=== PATIENT | female | born 1980 | race Caucasian/White ===

== ENCOUNTER 2018-12-03 15:46 | Emergency (ER) | payer OTHER ==
[2018-12-03 15:55] VITALS: TEMP 99.6; BMI 32.5
[2018-12-03] MEDS ORDERED: ONDANSETRON 4 MG/2 ML VIAL IVPB ONE (16:14)
[2018-12-03] MEDS ORDERED: SODIUM CHLORIDE 1,000 ML IV ONE (16:14)
--- NOTE | 2018-12-03 16:14 | PDOC ---
Attending Attestation - Resident Resident Name: Simon Forbes - ED Attending Attestation I have performed the following: I have examined & evaluated the patient, The case was reviewed & discussed with the resident, I agree w/resident's findings & plan, Exceptions are as noted - HPI HPI: 12/03/18 16:12 38y F hx of ovarian cysts s/p cystectomy presents with epigastric pain associated with n/v/d since last night. 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 However, overnight, she had multiple episodes of nbnb vomiting and brown watery diarrhea (~7 episodes of each) without bpr or melena. Pt endorses feeling some chills. Pt has not eaten anythng since last night but was able to tolerate some water an hr ago. Pt denies any recent travel or [place] sick contacts. pt denies any dysuria, vag bleed, cp, sob, palpitations lightedness. - Physicial Exam PE: 12/03/18 17:07 GENERAL: The patient is awake, alert, and fully oriented, Nontoxic - in no acute distress. HEAD: Normocephalic, atraumatic. EYES: extraocular movements intact, sclera anicteric, conjunctiva clear. ENT: Normal voice, dry mucous membranes. NECK: Normal range of motion, supple LUNGS: Breath sounds equal, clear to auscultation bilaterally. No wheezes, no rhonchi, no rales. HEART: tachycardic, no m/r/g ABDOMEN: Soft, nontender, No guarding, no rebound. . No CVA tenderness EXTREMITIES: Normal range of motion, no edema. No clubbing or cyanosis. No cords, erythema, or tenderness. NEUROLOGICAL: No facial assymetry, Normal speech, PSYCH: Normal mood, normal affect. SKIN: hot to touch, Dry, normal turgor, - Critical Care Time Total Critical Care Time: 30 Critical Care Statement: The care of this patient involved high complexity decision making to prevent further life threatening deterioration of the patient 's condition and/or to evaluate & treat vital organ system(s) failure or risk of failure. - Medical Decision Making 12/03/18 17:08 -year-old female presenting with nausea vomiting and diarrhea with intermittent epigastric pain, current leave the patient is pain-free and does not feel nauseous. The patient's presenting vital signs revealed heart rate of 140 this may be attributable to a low-grade temperature as well as dehydration as the patient has not really had anything to eat or drink since last night. Her abdominal exam is benign without any tenderness. We will fluid resuscitate the patient, will give Tylenol for suspected fever, lab work to rule out anemia, metabolic derangements, leukocytosis. UA to eval for UTI EKG to screen for arrhythmia We'll reassess 12/03/18 17:27 pts HR improving w fluid resusitation - currently 116 Heart Score/ECG Review - ECG Impressions Comment:: 12/03/18 17:08 Twelve-lead EKG was performed and reviewed by me. There is normal sinus rhythm with a rate of 121 The axis is normal. The intervals are normal. There is normal R wave progression There are no ST or T wave abnormalities. Impression: Sinus tachycardia
[2018-12-03] MEDS ORDERED: ONDANSETRON 4 MG/2 ML VIAL ONE (16:20)
[2018-12-03 16:25] LABS: HCG,QUALITATIVE URINE Negative
--- NOTE | 2018-12-03 16:29 | PDOC ---
History of Present Illness - General Chief Complaint: Vomiting/Diarrhea Stated Complaint: N/V/D, OVARIAN CYST Time Seen by Provider: 12/03/18 15:57 History Source: Patient Exam Limitations: No Limitations - History of Present Illness Initial Comments: 12/03/18 16:16 38 yo female pmh of ovarian cysts (large cyst removed over 15 years ago) presents to the ED with 1 day of NB/NB vomiting, diarrhea and abdominal pain. Pt states she went to [facility] yesterday for vaginal bleeding that started 3 days ago requiring 3-5 tampons per day/. Pt had transvag US, told she had a 4 cm left ovarian cyst yesterday and sent home, does not know results of blood work. Pt states she was woken up out of sleep today with intermittent LLQ and epigastric abdominal pain described as burning with 7 episodes of NB/NB vomiting and 2 episodes of non bloody diarrhea and chills. Pt admits to eating chicken wings from a new location yesterday, no sick contacts/recent travel. Denies CP, SOB, back pain, changes in bowel or bladder habits. LMP 11/14/2018, expecting next period 12/11 however has started vaginal bleeding since Thursday. Dr. Dove Past History - Past Medical History Allergies/Adverse Reactions: Allergies Allergy/AdvReac Type Severity Reaction Status Date / Time No Known Allergies Allergy Verified 12/03/18 15:50 Home Medications: Ambulatory Orders NK [No Known Home Medication] 12/03/18 COPD: No - Reproductive History Is Patient Now?: No Polycystic Ovaries: Yes - Immunization History Immunization Up to Date: No - Suicide/Smoking/Psychosocial Hx Smoking Status: No Smoking History: Never smoked Number of Cigarettes Smoked Daily: 0 Hx Alcohol Use: No Drug/Substance Use Hx: No *Physical Exam - Vital Signs Last Vital Signs Temp Pulse Resp BP Pulse Ox 99.6 F 144 H 18 135/89 100 12/03/18 15:49 12/03/18 15:49 12/03/18 15:49 12/03/18 15:49 12/03/18 15:49 ED Treatment Course - LABORATORY CBC & Chemistry Diagram: 12/03/18 16:35 12/03/18 16:35 Medical Decision Making - Medical Decision Making 12/03/18 18:47 US neg for torsion. Shows known left ovarian cyst without rupture Pt mg 1.5, will replete Pt given 1L NS, HR down into 110s. another 1L NS given and will reassess Pt likely has a GI virus *DC/Admit/Observation/Transfer Diagnosis at time of Disposition: Diarrhea Vomiting Qualifiers: Vomiting Intractability: unspecified Nausea presence: with nausea - Discharge Dispostion Disposition: HOME Condition at time of disposition: Good Decision to Admit order: No - Referrals - Patient Instructions Printed Discharge Instructions: DI for Viral Gastroenteritis -- Adult Additional Instructions: Please see your primary doctor within the next 48 hours. Return to the ER for new or concerning symptoms including but not limited to: excessive abdominal pain, high fevers, inability to eat or drink. Thank you - Post Discharge Activity
[2018-12-03 16:57] LABS: HEMATOCRIT 40.7 % (32.4-45.2); HEMOGLOBIN 13.4 GM/dl (10.7-15.3); MCH 29.8 pg (25.7-33.7); MEAN CELL VOLUME 90.5 fl (80-96); MEAN PLT VOLUME 9.6 fl (7.5-11.1); PLATELET COUNT 229 K/MM3 (134-434); RDW 12.6 % (11.6-15.6)
[2018-12-03] MEDS ORDERED: ACETAMINOPHEN 325 MG TABLET (FP) PO ONE (17:06)
[2018-12-03 17:07] VITALS: BP 135/85
[2018-12-03 17:13] LABS: ALBUMIN 4.3 g/dl (3.4-5.0); ALK PHOS 72 U/L (45-117); ANION GAP 11 MMOL/L (8-16); BILIRUBIN,TOTAL 1.1 mg/dl (0.2-1); BLOOD UREA NITROGEN 12 mg/dl (7-18); CHLORIDE 103 mmol/L (98-107); CO2 22 mmol/L (21-32); CREATININE 0.7 mg/dl (0.55-1.3); GLUCOSE,RANDOM 125 mg/dl (74-106); MAGNESIUM 1.5 mg/dL (1.8-2.4); POTASSIUM 4.1 mmol/L (3.5-5.1); SGOT/AST 34 U/L (15-37); SGPT/ALT 41 U/L (13-61); SODIUM 136 mmol/L (136-145); TOT PROT 7.4 g/dl (6.4-8.2)
[2018-12-03] MEDS ORDERED: ACETAMINOPHEN 500 MG TABLET (FP) ONE (17:13)
[2018-12-03] MEDS ORDERED: MAGNESIUM SULF 50% (8.12 MEQ/2 ML-1 GM VIAL) IVPB ONE (18:16)
[2018-12-03] MEDS ORDERED: MAGNESIUM 1GM/D5W - 1 GM/100 ML IVPB IVPB ONE (18:20)
[2018-12-03 18:49] LABS: PLATELET ESTIMATE ADEQUATE
[2018-12-03 19:01] VITALS: PULSE 112
--- NOTE | 2018-12-04 08:25 | EKG ---
Test Reason : Blood Pressure : / mmHG Vent. Rate : 121 BPM Atrial Rate : 121 BPM P-R Int : 148 ms QRS Dur : 090 ms QT Int : 328 ms P-R-T Axes : 000 -06 026 degrees QTc Int : 465 ms SINUS TACHYCARDIA OTHERWISE NORMAL ECG NO PREVIOUS ECGS AVAILABLE Confirmed by ISHAAN LEYVA MD ([id number]) on 12/04/2018 8:25:02 AM Referred By: MD SMITH Confirmed By:ISHAAN LEYVA MD
== END 2018-12-03 19:27 | disposition home or self-care (01) ==
LOC: FER 15:46
PROC: 3E033GC Introduction of Other Therapeutic Substance into Peripheral Vein, Percutaneous Approach (ICD-10-PCS; principal; 2018-12-03)
PROC: 3E0337Z Introduction of Electrolytic and Water Balance Substance into Peripheral Vein, Percutaneous Approach (ICD-10-PCS; 2018-12-03)
DX: R19.7 Diarrhea, unspecified (principal); R11.0 Nausea
CPT/HCPCS: 36415; 76830-TC; 80053; 81003; 83735; 84703; 85025; 87086; 87389; 93005; 96361; 96374; 96375; 99285-25; J7030